=== PATIENT | male | born 1960 | race Caucasian/White ===

== ENCOUNTER 2016-12-07 05:13 | Observation (INO) | payer MEDICAID ==
[~2016-12-07] VITALS: Ht 172.7 cm; Wt 60.0 kg
[2016-12-07] VITALS (15 sets, daily range): BP systolic 140–211; BP diastolic 85–127; PULSE 75–110; RESP 16–20; TEMP 98.1–98.4; O2SAT 84–98
[~2016-12-07 05:13] MED LIST: PERC10TA27 PO; ZOFR4TAB3 SL
[2016-12-07] MEDS ORDERED: SODIUM CHLOR 0.9% 1000 ML INJ 1,000 ML IV SCH (05:24)
[2016-12-07] MEDS ORDERED: METH10TA PO (05:25)
[2016-12-07] MEDS ORDERED: ALBU.5I NEB (05:25)
[2016-12-07] MEDS ORDERED: DILA8TAB4 PO (05:25)
[2016-12-07] MEDS ORDERED: b/p med (05:25)
[2016-12-07] MEDS ORDERED: PROM25TA5 PO (05:25)
[2016-12-07] MEDS ORDERED: ONDANSETRON HCL 4 MG/2 ML VIAL IVP ONE (05:30)
[2016-12-07] MEDS ORDERED: MORPHINE SULFATE 4 MG/ML INJ IV PUSH ONE (05:30)
[2016-12-07] MEDS ORDERED: SODIUM CHLORIDE 0.9% FLUSH 5 ML FLUSH IVF PRN (05:30)
[2016-12-07 05:53] LABS: AUTOMATED NEUTROPHIL # 7.3 TH/MM3 (1.8-7.7); BASOPHIL % 0.2 % (0.0-2.0); EOSINOPHIL # 0.1 TH/MM3 (0-0.4); EOSINOPHIL % 0.8 % (0.0-4.0); HEMATOCRIT 51.4 % (39.0-51.0); HEMO FLAGS DIFF FINAL; LYMPH % 12.5 % (9.0-44.0); LYMPHOCYTE # 1.1 TH/MM3 (1.0-4.8); MEAN CORPUSCULAR HEMOGLOBIN 30.5 PG (27.0-34.0); MEAN CORPUSCULAR HGB CONC 34.3 % (32.0-36.0); MONO % 6.8 % (0.0-8.0); NEUT % 79.7 % (16.0-70.0); PLATELET COUNT 219 TH/MM3 (150-450); RED BLOOD COUNT 5.78 MIL/MM3 (4.50-5.90); RED CELL DISTRIBUTION WIDTH 13.8 % (11.6-17.2); WHITE BLOOD COUNT 9.2 TH/MM3 (4.0-11.0)
[2016-12-07] MEDS ORDERED: HYDROmorphone HCL PF 1 MG/ML VIAL IV PUSH ONE ×2 (06:00→09:00)
--- NOTE | 2016-12-07 06:07 | PD ---
HPI Chief Complaint: Abdominal Pain Time Seen by Provider: 05:22 Travel History International Travel<30 days: No Contact w/Intl Traveler<30days: No Traveled to known affect area: No History of Present Illness HPI The patient is a 55 year old male who presents to the [facility] emergency department with a history of abdominal pain that began on Monday evening. The patient reports that the pain began in the midepigastric area and now has generalized throughout the abdomen and up into his back. The patient reports that the pain is very similar to when he had flares of his acute pancreatitis. The patient reports that he is on hospice related to COPD, Crohn's disease and pancreatitis. He reports that he has not been able to keep down his methadone or dilaudid in spite of taking promethazine. He reports that he's had nausea and vomiting 4 times the last 24 hours. He reports that he has chronic diarrhea related to his Crohn's disease. He reports that on average he usually moves his bowels 15 times per day. He denies having any blood in his stool or black or tarry stools. He has not had any increase in his bowel movements with this abdominal pain. The patient reports that he did not call his hospice nurse to notify her about coming to the emergency department prior to arrival. The patient denies any recent fevers, worsening cough or congestion, neck pain, chest pain, shortness of breath,urinary symptoms, or neurologic symptoms. [facility] Past Medical History Narrative Medical The patient's past medical history is significant for chronic pancreatitis, history of pancreatic pseudocyst, history of esophageal varices, arthritis, history of myocardial infarction 2, history of COPD, Crohn's disease. Hx Anticoagulant Therapy: No Arthritis: Yes (RHEUMATOID AND OSTEO) Asthma: Yes Autoimmune Disease: No Anxiety: No Depression: No Heart Rhythm Problems: No Cancer: No Cardiac Catheterization: Yes Cardiovascular Problems: No High Cholesterol: No Chemotherapy: No Chest Pain: Yes Congestive Heart Failure: No COPD: Yes Cerebrovascular Accident: No Diabetes: No Diminished Hearing: No Diverticulitis: Yes (crohn's) Endocrine: No Gastrointestinal Disorders: Yes (CROHNS) GERD: Yes Genitourinary: No Headaches: No Hiatal Hernia: Yes Hypertension: Yes (WHEN IN PAIN) Immune Disorder: No Implanted Vascular Access Dvce: No Kidney Stones: No Musculoskeletal: Yes Neurologic: No Psychiatric: No Reproductive: No Respiratory: No Immunizations Current: Yes Migraines: No Myocardial Infarction: Yes (2009) Pancreatitis: Yes (chronic.) Radiation Therapy: No Renal Failure: No Seizures: No Sleep Apnea: No Thyroid Disease: No Ulcer: No Influenza Vaccination: Yes Past Surgical History Abdominal Surgery: No Body Medical Devices: BULLETS L KNEE, R SHOULDER, L ARM PIT, L THIGH Cardiac Surgery: Yes (ABLATION) Ear Surgery: No Endocrine Surgery: No Eye Surgery: No Genitourinary Surgery: No Gynecologic Surgery: No Hysterectomy: No Neurologic Surgery: No Oral Surgery: No Thoracic Surgery: No Other Surgery: Yes (ESOPHAGEAL VARICIES, BLOOD CLOT BETWEEN PANCREAS AND SPLEEN ) Social History Alcohol Use: No (QUIT 5 YEARS AGO) Tobacco Use: Yes (0.5 PPD) Substance Use: No Allergies-Medications (Allergen,Severity, Reaction): Coded Allergies: *MDRO Multi-Drug Resistant Organism (Verified Adverse Reaction, Unknown, ) MRSA 08/2013 Abscess - thigh. MRSA PCR Screen negative 04/29/15 and 07/20/15. Cleared per Infection Control. Reported Meds & Prescriptions Reported Meds & Active Scripts Active Reported [b/p med] Albuterol Neb (Albuterol Sulfate) 2.5 Mg/0.5 Ml Neb 2.5 Mg NEB Q6HR NEB Note: The Albuterol Sulfate Inhalation Solution is concentrated and must be diluted. Read complete instructions carefully before using. Phenergan (Promethazine HCl) 25 Mg Tab 25 Mg PO Q6H PRN Dilaudid (Hydromorphone HCl) 8 Mg Tab 8 Mg PO Q4HR PRN Methadone (Methadone HCl) 10 Mg Tab 10 Mg PO Q6HR Review of Systems Except as stated in HPI: all other systems reviewed are Neg General / Constitutional: No: Fever Eyes: No: Visual changes HENT: No: Headaches Cardiovascular: No: Chest Pain or Discomfort Respiratory: No: Shortness of Breath Gastrointestinal: Positive: Nausea, Vomiting, Diarrhea, Abdominal Pain, No: Hematemesis, Hematochezia, Constipation, Changes in Bowel Habits, Indigestion, Loss of Appetite Genitourinary: No: Dysuria Musculoskeletal: No: Pain Skin: No Rash Neurologic: No: Weakness Psychiatric: No: Depression Endocrine: No: Polydipsia Hematologic/Lymphatic: No: Easy Bruising Physical Exam Narrative General: The patient is a well-developed thin appearing male in no acute distress Head and Neck exam: Head is normocephalic atraumatic. Eyes: EOMI, pupils are equal round and reactive to light. Nose: Midline septum with pink mucous membranes Mouth: Dentition is in disrepair throughout his mouth with multiple broken teeth and dental decay throughout. Moist mucus membranes. Posterior oropharynx is not erythematous. No tonsillar hypertrophy. Uvula midline. Airway patent. Neck: No palpable lymphadenopathy. No nuchal rigidity. No thyromegaly. Cardiovascular: Regular rate and rhythm without murmurs, gallops, or rubs. Lungs: Clear to auscultation bilaterally. No wheezes, rhonchi, or rales. Abdomen: Soft, with midepigastric and bilateral upper quadrant tenderness on palpation, no tenderness on palpation of McBurney's point. No tenderness on palpation of bilateral lower quadrants of the abdomen. No guarding, rebound, or rigidity. Decreased bowel sounds are audible. Negative Ida sign. Extremities: No clubbing, cyanosis, or edema. 2+ pulses in all 4 extremities. No calf tenderness on palpation. Back: No spinous process tenderness to palpation. No costovertebral angle tenderness to palpation. Neurologic Exam: Grossly nonfocal. Skin Exam: No rash noted. Intact skin that is warm and dry. Data Data Last Documented VS Vital Signs Date Time Temp Pulse Resp B/P Pulse Ox O2 Delivery O2 Flow Rate FiO2 12/07/16 05:26 98 Room Air 12/07/16 05:25 98.1 102 16 172/116 Orders Complete Blood Count With Diff (12/07/16 05:24) Comprehensive Metabolic Panel (12/07/16 05:24) Lipase (12/07/16 05:24) Lactic Acid (12/07/16 05:24) Urinalysis - C+S If Indicated (12/07/16 05:24) Iv Access Insert/Monitor (12/07/16 05:24) Ecg Monitoring (12/07/16 05:24) Oximetry (12/07/16 05:24) Morphine Inj (Morphine Inj) (12/07/16 05:30) Ondansetron Inj (Zofran Inj) (12/07/16 05:30) Sodium Chlor 0.9% 1000 Ml Inj (Ns 1000 M (12/07/16 05:24) Sodium Chloride 0.9% Flush (Ns Flush) (12/07/16 05:30) Electrocardiogram (12/07/16 05:24) Creatine Kinase (Cpk) (12/07/16 05:24) Ckmb (Isoenzyme) Profile (12/07/16 05:24) Troponin I (12/07/16 05:24) Hydromorphone Pf Inj (Dilaudid Pf Inj) (12/07/16 06:00) Ct Abd/Pel W Iv Contrast(Rout) (12/07/16 06:07) Labs Laboratory Tests Test 12/07/16 12/07/16 05:30 06:25 White Blood Count 9.2 TH/MM3 Red Blood Count 5.78 MIL/MM3 Hemoglobin 17.6 GM/DL Hematocrit 51.4 % Mean Corpuscular Volume 89.0 FL Mean Corpuscular Hemoglobin 30.5 PG Mean Corpuscular Hemoglobin 34.3 % Concent Red Cell Distribution Width 13.8 % Platelet Count 219 TH/MM3 Mean Platelet Volume 8.4 FL Neutrophils (%) (Auto) 79.7 % Lymphocytes (%) (Auto) 12.5 % Monocytes (%) (Auto) 6.8 % Eosinophils (%) (Auto) 0.8 % Basophils (%) (Auto) 0.2 % Neutrophils # (Auto) 7.3 TH/MM3 Lymphocytes # (Auto) 1.1 TH/MM3 Monocytes # (Auto) 0.6 TH/MM3 Eosinophils # (Auto) 0.1 TH/MM3 Basophils # (Auto) 0.0 TH/MM3 CBC Comment DIFF FINAL Differential Comment Lactic Acid Level 0.8 mmol/L Sodium Level 139 MEQ/L Potassium Level 3.6 MEQ/L Chloride Level 103 MEQ/L Carbon Dioxide Level 27.4 MEQ/L Anion Gap 9 MEQ/L Blood Urea Nitrogen 9 MG/DL Creatinine 0.64 MG/DL Estimat Glomerular Filtration 130 ML/MIN Rate Random Glucose 109 MG/DL Calcium Level 8.2 MG/DL Total Bilirubin 0.6 MG/DL Aspartate Amino Transf 14 U/L (AST/SGOT) Alanine Aminotransferase 18 U/L (ALT/SGPT) Alkaline Phosphatase 64 U/L Total Creatine Kinase 62 U/L Troponin I 0.02 NG/ML Total Protein 7.1 GM/DL Albumin 3.6 GM/DL Lipase 1108 U/L MDM Medical Decision Making Medical Screen Exam Complete: Yes Emergency Medical Condition: Yes Medical Record Reviewed: Yes Interpretation(s) Laboratory Tests Test 12/07/16 12/07/16 05:30 06:25 Hemoglobin 17.6 GM/DL (13.0-17.0) Hematocrit 51.4 % (39.0-51.0) Neutrophils (%) (Auto) 79.7 % (16.0-70.0) Random Glucose 109 MG/DL (74-106) Calcium Level 8.2 MG/DL (8.5-10.1) Aspartate Amino Transf 14 U/L (15-37) (AST/SGOT) Lipase 1108 U/L (73-393) Differential Diagnosis Acute pancreatitis, versus peptic ulcer disease, versus Crohn's exacerbation, versus dehydration, versus acute coronary syndrome, versus electrolyte derangements Narrative Course During the course of the patients emergency department visit, the patients history, examination, and differential diagnosis were reviewed with the patient. The patient had IV access obtained and blood work sent for analysis. The patient was placed on a monitoring manager with oximetry and blood pressure monitoring. An EKG was done on arrival. The patient's EKG shows a sinus rhythm heart rate of 99, no acute ST segment elevation or depression is noted. T waves are inverted in V1 and aVL. The patient was provided normal saline IV fluids, morphine for pain, Zofran for nausea. The patient then told me that morphine does not think for him, and he continued to have pain, therefore he was given hydromorphone 1 mg IV. A call was placed out to the hospice nurse that normally cares for the patient to notify her of the patient's arrival in the emergency department for evaluation. The patients laboratory studies were reviewed and remarkable for a CBC that shows a white count of 9.2, hemoglobin 17.6, platelets 219 with 79.7 neutrophils , CMP is remarkable for a lactic acid 0.8, CMP is remarkable for a glucose of 109, calcium 8.2, AST 14, CPK 62, troponin I 0.02, lipase 1108. CT scan of the abdomen and pelvis is pending at the conclusion of my shift. The patient's case will be checked out to the oncoming emergency room physician to disposition based on the conclusion of his workup. Diagnosis Primary Impression: Acute on chronic pancreatitis Tegan Morales MD Dec 07, 2016 06:07
[2016-12-07 06:56] LABS: ALT (GPT) 18 U/L (12-78); ANION GAP 9 MEQ/L (5-15); AST (GOT) 14 U/L (15-37); BICARBONATE 27.4 MEQ/L (21.0-32.0); BLOOD UREA NITROGEN 9 MG/DL (7-18); CHLORIDE 103 MEQ/L (98-107); GLOMERULAR FILTRATION RATE 130 ML/MIN (>89); POTASSIUM 3.6 MEQ/L (3.5-5.1); SODIUM (NA) 139 MEQ/L (136-145)
[2016-12-07 07:00] LABS: ALKALINE PHOSPHATASE 64 U/L (45-117); TOTAL BILIRUBIN ADULT 0.6 MG/DL (0.2-1.0)
[2016-12-07 07:05] LABS: CREATINE KINASE 62 U/L (39-308)
--- NOTE | 2016-12-07 07:48 | RADRPT ---
EXAM DATE/TIME: 12/07/2016 07:11 [place] COMPARISON: CT ABDOMEN & PELVIS W/O CONTRAST, October 02, 2015, 23:41. CT ABDOMEN & PELVIS W CONTRAST, July 20, 2015, 11:36. INDICATIONS : Nausea and vomiting, epigastric pain. IV CONTRAST: 96 cc Omnipaque 350 (iohexol) IV ORAL CONTRAST: No oral contrast ingested. RADIATION DOSE: 8.44 CTDIvol (mGy) MEDICAL HISTORY : Pancreatitis. Chronic obstructive pulmonary disease. Cardiovascular diseaseHiatal hernia. Crohns. SURGICAL HISTORY : Esophageal surgery. ENCOUNTER: Initial ACUITY: 1 day PAIN SCALE: 10/10 LOCATION: epigastric TECHNIQUE: Volumetric scanning of the abdomen and pelvis was performed. Using automated exposure control and ad justment of the mA and/or kV according to patient size, radiation dose was kept as low as reasonably achievable to obtain optimal diagnostic quality images. FINDINGS: LOWER LUNGS: Minimal atelectasis is noted within the right posterior medial lung base. LIVER: Homogeneous density without lesion. There is no dilation of the biliary tree. No calcified gallston es. SPLEEN: Normal size without lesion. PANCREAS: Mild peripancreatic inflammatory changes are noted suggesting acute pancreatitis. Clinical correlatio n is recommended. Correlation with amylase and lipase levels is also suggested. There is a stable 2.3 cm cystic structure within the head/uncinate process of the pancreas. The main pancreatic duct is di ffusely dilated. KIDNEYS: Normal in size and shape. There is no mass or hydronephrosis. There is a tiny 3 mm faintly calcified lower pole right renal calculus. ADRENAL GLANDS: Within normal limits. VASCULAR: There is no aortic aneurysm. BOWEL/MESENTERY: The stomach, small bowel, and colon demonstrate no acute abnormality. There is no free intraperitone al air or fluid. ABDOMINAL WALL: Within normal limits. RETROPERITONEUM: There is no lymphadenopathy. BLADDER: No wall thickening or mass. REPRODUCTIVE: Within normal limits. INGUINAL: There is no lymphadenopathy or hernia. MUSCULOSKELETAL: Within normal limits for patient age. CONCLUSION: 1. Mild peripancreatic inflammatory changes are noted suggesting acute pancreatitis. Clinical correla tion is recommended. Correlation with amylase and lipase levels is also suggested. 2. Stable 2.3 cm cystic structure within the head/uncinate process of the pancreas. 3. Main pancreatic duct is diffusely dilated. 4. 3 mm calcified nonobstructing lower pole right renal calculus. Jim Flanagan MD on December 07, 2016 at 7:37 Board Certified Radiologist. This report was verified electronically.
--- NOTE | 2016-12-07 08:55 | PD ---
Physical Exam Date Seen by Provider: Dec 07, 2016 Data Data Last Documented VS Vital Signs Date Time Temp Pulse Resp B/P Pulse Ox O2 Delivery O2 Flow Rate FiO2 12/07/16 05:26 98 Room Air 12/07/16 05:25 98.1 102 16 172/116 Orders Complete Blood Count With Diff (12/07/16 05:24) Comprehensive Metabolic Panel (12/07/16 05:24) Lipase (12/07/16 05:24) Lactic Acid (12/07/16 05:24) Urinalysis - C+S If Indicated (12/07/16 05:24) Iv Access Insert/Monitor (12/07/16 05:24) Ecg Monitoring (12/07/16 05:24) Oximetry (12/07/16 05:24) Morphine Inj (Morphine Inj) (12/07/16 05:30) Ondansetron Inj (Zofran Inj) (12/07/16 05:30) Sodium Chlor 0.9% 1000 Ml Inj (Ns 1000 M (12/07/16 05:24) Sodium Chloride 0.9% Flush (Ns Flush) (12/07/16 05:30) Electrocardiogram (12/07/16 05:24) Creatine Kinase (Cpk) (12/07/16 05:24) Ckmb (Isoenzyme) Profile (12/07/16 05:24) Troponin I (12/07/16 05:24) Hydromorphone Pf Inj (Dilaudid Pf Inj) (12/07/16 06:00) Ct Abd/Pel W Iv Contrast(Rout) (12/07/16 06:07) Hydromorphone Pf Inj (Dilaudid Pf Inj) (12/07/16 09:00) Admit Order (Ed Use Only) (12/07/16 08:55) Labs Laboratory Tests Test 12/07/16 12/07/16 05:30 06:25 White Blood Count 9.2 TH/MM3 Red Blood Count 5.78 MIL/MM3 Hemoglobin 17.6 GM/DL Hematocrit 51.4 % Mean Corpuscular Volume 89.0 FL Mean Corpuscular Hemoglobin 30.5 PG Mean Corpuscular Hemoglobin 34.3 % Concent Red Cell Distribution Width 13.8 % Platelet Count 219 TH/MM3 Mean Platelet Volume 8.4 FL Neutrophils (%) (Auto) 79.7 % Lymphocytes (%) (Auto) 12.5 % Monocytes (%) (Auto) 6.8 % Eosinophils (%) (Auto) 0.8 % Basophils (%) (Auto) 0.2 % Neutrophils # (Auto) 7.3 TH/MM3 Lymphocytes # (Auto) 1.1 TH/MM3 Monocytes # (Auto) 0.6 TH/MM3 Eosinophils # (Auto) 0.1 TH/MM3 Basophils # (Auto) 0.0 TH/MM3 CBC Comment DIFF FINAL Differential Comment Lactic Acid Level 0.8 mmol/L Sodium Level 139 MEQ/L Potassium Level 3.6 MEQ/L Chloride Level 103 MEQ/L Carbon Dioxide Level 27.4 MEQ/L Anion Gap 9 MEQ/L Blood Urea Nitrogen 9 MG/DL Creatinine 0.64 MG/DL Estimat Glomerular Filtration 130 ML/MIN Rate Random Glucose 109 MG/DL Calcium Level 8.2 MG/DL Total Bilirubin 0.6 MG/DL Aspartate Amino Transf 14 U/L (AST/SGOT) Alanine Aminotransferase 18 U/L (ALT/SGPT) Alkaline Phosphatase 64 U/L Total Creatine Kinase 62 U/L Troponin I 0.02 NG/ML Total Protein 7.1 GM/DL Albumin 3.6 GM/DL Lipase 1108 U/L [facility] Medical Record Reviewed: Yes Supervised Visit with ALYSSA: No Narrative Course Patient signed out to me by Dr. Morales at change of shift. Pending CT study and disposition Patient with acute pancreatitis, reviewed all labs and all studies with the patient detailed. Patient reports that he cannot tolerate his by mouth medications at home, reports that he cannot tolerate fluids as well, patient will be admitted for acute pancreatitis. case reviewed with dr giles who accepts pt to service of Dr. Siegel Diagnosis Primary Impression: Acute on chronic pancreatitis Admitting Information Admitting Physician Requests: Admit Geraldine Henry DO Dec 07, 2016 08:55
--- NOTE | 2016-12-07 09:25 | HHI.HP ---
[facility] Service Family Medicine Primary Care Physician Casper Womack Admission Diagnosis acute pancreatitis Diagnoses: International Travel<30 Days: No Contact w/Intl Traveler<30days: No Known Affected Area: No History of Present Illness Patient is a 55-year-old male with past medical history of chronic pancreatitis , hypertension, A. fib status post ablation Crohn's disease, anxiety, and chronic back pain that presents to the [place] ED with a chief complaint of severe abdominal pain that began on Tuesday 12/05. Patient normally has abdominal pain from his chronic pancreatitis, which has been managed with oral pain medications by hospice for the past 1 year. However, the chronic pain became worse such that he couldn't keep medications down since Monday, they kept vomiting, abdominal pain became worse since Monday. Abdominal pain is straight across belt line and bilateral kidneys, and straight up and down his chest and straight up and down his spine. Vomited 10-15 times since Monday. Patient has chronic back pain, diarrhea from Crohn's disease. Also complains of an unintentional 8 pound loss over the past 2 weeks. Denies fever or chills. Has chronic shortness of breath from emphysema. Uses oxygen at hospice at home. Last hospitalized in December 2015 for exacerbation of chronic pancreatitis. Has been in home hospice for 1 year since then. Review of Systems Constitutional: COMPLAINS OF: Fatigue, DENIES: Fever, Chills, Night Sweats Eyes: DENIES: Blurred vision, Eye pain Ears, nose, mouth, throat: DENIES: Nasal discharge, Running Nose Respiratory: COMPLAINS OF: Cough, Sputum production, Shortness of breath ( chronic) Cardiovascular: COMPLAINS OF: Chest pain (associated with chronic pancreatitis) Gastrointestinal: COMPLAINS OF: Abdominal pain, Diarrhea (chronic ), Nausea Genitourinary: DENIES: Urinary frequency, Dysuria Musculoskeletal: COMPLAINS OF: Joint pain (hips), Muscle aches (back), Back pain (chronic) Integumentary: COMPLAINS OF: Pruritus (sometimes after takes meds for a couple minutes), DENIES: Rash Neurologic: COMPLAINS OF: Paresthesias (numbness in feet and fingers), DENIES : Headache Past Family Social History Past Medical History [place] x 2 AFIB s/p ablation 1 year ago Chronic pancreatitis Hypertension Anxiety Chronic back pain Past Surgical History A. fib Ablation Right shoulder and knee surgery Reported Medications Reported Meds & Active Scripts Active Reported [b/p med] Albuterol Neb (Albuterol Sulfate) 2.5 Mg/0.5 Ml Neb 2.5 Mg NEB Q6HR NEB Note: The Albuterol Sulfate Inhalation Solution is concentrated and must be diluted. Read complete instructions carefully before using. Phenergan (Promethazine HCl) 25 Mg Tab 25 Mg PO Q6H PRN Dilaudid (Hydromorphone HCl) 8 Mg Tab 8 Mg PO Q4HR PRN Methadone (Methadone HCl) 10 Mg Tab 10 Mg PO Q6HR Allergies: Coded Allergies: *MDRO Multi-Drug Resistant Organism (Verified Adverse Reaction, Unknown, ) MRSA 08/2013 Abscess - thigh. MRSA PCR Screen negative 04/29/15 and 07/20/15. Cleared per Infection Control. Family History No family history of diabetes or CAD Social History Smokes 1 cigarette in the morning and 1 cigarette at night Former alcoholic-drank 4 pints of vodka/day, quit 5 years ago Denies drug use Lives with and dog, no sick contacts Physical Exam Vital Signs Vital Signs Date Time Temp Pulse Resp B/P Pulse Ox O2 Delivery O2 Flow Rate FiO2 12/07/16 09:16 84 Nasal Cannula 2 12/07/16 09:11 90 20 171/107 97 12/07/16 05:26 98 Room Air 12/07/16 05:25 98.1 102 16 172/116 95 Physical Exam GENERAL: This is a well-nourished, well-developed patient, in no apparent distress. Appears slightly unkempt SKIN: No rashes, ecchymoses or lesions. Cool and dry. HEAD: Atraumatic. Normocephalic. No temporal or scalp tenderness. EYES: Pupils equal round and reactive. Extraocular motions intact. No scleral icterus. Erythematous sclera, no icterus ENT: Nose without bleeding, purulent drainage or septal hematoma. Throat without erythema, tonsillar hypertrophy or exudate. Uvula midline. Airway patent. Bad dentition, white patchy coating on tongue NECK: Trachea midline. No JVD or lymphadenopathy. Supple, nontender, no meningeal signs. CARDIOVASCULAR: Regular rate and rhythm without murmurs, gallops, or rubs. RESPIRATORY: Clear to auscultation. Breath sounds equal bilaterally. No wheezes , rales, or rhonchi. GASTROINTESTINAL: Abdomen soft, tender to light touch, nondistended. No hepato- splenomegaly, or palpable masses. No guarding. MUSCULOSKELETAL: Extremities without clubbing, cyanosis, or edema. No joint tenderness, effusion, or edema noted. No calf tenderness. NEUROLOGICAL: Awake and alert. Cranial nerves II through XII intact. Motor and sensory grossly within normal limits. Five out of 5 muscle strength in all muscle groups. Normal speech. Laboratory Laboratory Tests Test 12/07/16 12/07/16 05:30 06:25 White Blood Count 9.2 Red Blood Count 5.78 Hemoglobin 17.6 Hematocrit 51.4 Mean Corpuscular Volume 89.0 Mean Corpuscular Hemoglobin 30.5 Mean Corpuscular Hemoglobin 34.3 Concent Red Cell Distribution Width 13.8 Platelet Count 219 Mean Platelet Volume 8.4 Neutrophils (%) (Auto) 79.7 Lymphocytes (%) (Auto) 12.5 Monocytes (%) (Auto) 6.8 Eosinophils (%) (Auto) 0.8 Basophils (%) (Auto) 0.2 Neutrophils # (Auto) 7.3 Lymphocytes # (Auto) 1.1 Monocytes # (Auto) 0.6 Eosinophils # (Auto) 0.1 Basophils # (Auto) 0.0 CBC Comment DIFF FINAL Differential Comment Lactic Acid Level 0.8 Sodium Level 139 Potassium Level 3.6 Chloride Level 103 Carbon Dioxide Level 27.4 Anion Gap 9 Blood Urea Nitrogen 9 Creatinine 0.64 Estimat Glomerular Filtration 130 Rate Random Glucose 109 Calcium Level 8.2 Total Bilirubin 0.6 Aspartate Amino Transf 14 (AST/SGOT) Alanine Aminotransferase 18 (ALT/SGPT) Alkaline Phosphatase 64 Total Creatine Kinase 62 Troponin I 0.02 Total Protein 7.1 Albumin 3.6 Lipase 1108 Result Diagram: 12/07/16 0530 12/07/16 0625 Imaging Last Impressions Abdomen/Pelvis CT 12/07/16 0607 Signed Impressions: Service Date/Time: Wednesday, December 07, 2016 07:11 - CONCLUSION: 1. Mild peripancreatic inflammatory changes are noted suggesting acute pancreatitis. Clinical correlation is recommended. Correlation with amylase and lipase levels is also suggested. 2. Stable 2.3 cm cystic structure within the head/uncinate process of the pancreas. 3. Main pancreatic duct is diffusely dilated. 4. 3 mm calcified nonobstructing lower pole right renal calculus. Jim Flanagan MD Assessment and Plan Assessment and Plan 55 y/o M with a PMH of chronic pancreatitis presents with acute on chronic pancreatitis with nausea, vomiting, and exacerbated abdominal pain. Pt would be admitted on observation for rehydration and pain control. Code Status DNR Discussed Condition With Seen and examined with Dr. Isidro, PGY-2, Discussed with Dr. Siegel Problem List: (1) Acute on chronic pancreatitis Status: Acute Plan: -Worsened abdominal pain in the setting of chronic pancreatitis on hospice -Afebrile on admission -Lipase elevated at 1108 -Lactic acid WNL -UA negative -WBC WNL, does not meet there is criteria -CT scan in the ED shows mild peripancreatic inflammatory changes suggesting acute pancreatitis, stable 2.3 cm cystic structure within the head/uncinate process of the pancreas, main pancreatic duct is diffusely dilated -Received a NS bolus in the ED -NS at 150 mls/hr -Dilaudid 3mg IV Q4h -Dilaudid 2mg IV Q4h for breakthrough pain -We will resume patient's home methadone 20 mg by mouth every 8 hours as he tolerates -Vitals every 4 hours -Activity bed rest -Continuous hospital monitor with telemetry -I's and O qshift -Continuous pulse oximetry with supplemental oxygen as needed (2) Hypertension Status: Acute Plan: -Continue atenolol 25 mg by mouth daily -Vasotec PRN for SBP greater than 180, DBP greater than 110 (3) Emphysema of lung Status: Chronic Plan: -Albuterol 2.5 mg nebulizer -Continue prednisone 10 mg by mouth daily as patient tolerates (4) History of myocardial infarction Status: Acute Plan: -Troponin 1 0.02 -ECG 1 shows normal sinus rhythm, rate of 99 (5) Gastroesophageal reflux disease Status: Acute Plan: -Protonix 40 mg IV once daily (6) Depression Status: Acute Plan: -Continue sertraline 50 mg by mouth daily as patient tolerates (7) Anxiety Status: Acute Plan: -Ativan 1 mg IV every 6 hours PRN (8) FEN/DVT PPX/GI PPX Status: Acute Plan: Fluids:NS @ 150 mls/hr Electrolytes: Monitor and replace as needed Nutrition: Nothing by mouth DVT Prophylaxis: Lovenox 40 mg subcutaneous every 24 hours GI Prophylaxis: Protonix 40 mg IV daily Physician Certification 2 Midnight Certification Type: Admission for Inpatient Services Order for Inpatient Services The services are ordered in accordance with Medicare regulations or non- Medicare payer requirements, as applicable. In the case of services not specified as inpatient-only, they are appropriately provided as inpatient services in accordance with the 2-midnight benchmark. Estimated LOS (days): 12 days is the estimated time the patient will need to remain in the hospital, assuming treatment plan goals are met and no additional complications. Post-Hospital Plan: Hospice Problem Qualifiers (1) Hypertension: Qualified Code: I10 - Essential hypertension (2) Depression: Yeimy Saab MD R1 Dec 07, 2016 09:25
--- NOTE | 2016-12-07 09:43 | EKG ---
Date Performed: 12/07/2016 Time Performed: 05:22:39 PTAGE: 55 years EKG: Sinus rhythm NORMAL ECG PREVIOUS TRACING : 12/26/2015 05.24 DOCTOR: Rupesh Rodriguez Interpretating Date/Time 12/07/2016 09:41:26
[2016-12-07] MEDS ORDERED: HYDROmorphone HCL PF 2 MG/ML VIAL IV PUSH ONE (09:45)
[2016-12-07] MEDS ORDERED: RESP: ALBUTEROL CONC 2.5 MG/0.5 ML NEB NEB SCH (10:00)
[2016-12-07] MEDS ORDERED: RESP: ALBUTEROL 2.5 MG/3 ML NEB (SCH) INH ONE (10:30)
[2016-12-07] MEDS ORDERED: HYDROmorphone HCL PF 4 MG/ML VIAL IV PUSH PRN (10:45)
[2016-12-07] MEDS ORDERED: ACETAMINOPHEN 325 MG TAB PO PRN (11:00)
[2016-12-07] MEDS ORDERED: RESP: ALBUTEROL 2.5 MG/3 ML NEB (PRN) NEB (11:00)
[2016-12-07] MEDS ORDERED: ENALAPRILAT 1.25 MG/ML VIAL IV PUSH PRN (11:00)
[2016-12-07] MEDS ORDERED: LORazepam 2 MG/ML VIAL IV PUSH PRN ×2 (11:00→18:00)
[2016-12-07] MEDS ORDERED: predniSONE 10 MG TAB PO SCH (11:00)
[2016-12-07] MEDS ORDERED: ONDANSETRON HCL 4 MG/2 ML VIAL IV PRN (12:00)
[2016-12-07] MEDS ORDERED: ENOXAPARIN SODIUM 40 MG/0.4 ML SYRINGE SQ SCH (12:00)
[2016-12-07] MEDS ORDERED: METHADONE HCL 10 MG TAB PO SCH ×2 (12:00→14:00)
[2016-12-07] MEDS ORDERED: PANTOPRAZOLE SODIUM 40 MG VIAL IV PUSH SCH (12:00)
--- NOTE | 2016-12-07 12:05 | HHI.FPPN ---
Subjective Subjective Patient seen and examined. Case reviewed and discussed Please refer to resident H&P for further details regarding HPI, ROS, PMH, SurgHx , Fh and SOcHx In summary, patient has a history of recurrent pancreatitis, last hospitalization one year ago, but prior to that had many bouts of acute on chronic pancreatitis He is now currently on hospice for recurrent hospitalizations related to pancreatitis due to alcohol abuse. Hospice service is [facility] at home and he has been on this for one year. He will get small flares at home, which he can control with cessation of PO intake, but on Monday he had progressive pain. Yesterday the pain became worse and he started vomiting/dry heaving up to 6 times at home. He could not control the pain and was becoming dehydrated which prompted him to come in this am. [facility] Objective Objective Last Impressions Abdomen/Pelvis CT 12/07/16 0607 Signed Impressions: Service Date/Time: Monday, December 07, 2016 07:11 - CONCLUSION: 1. Mild peripancreatic inflammatory changes are noted suggesting acute pancreatitis. Clinical correlation is recommended. Correlation with amylase and lipase levels is also suggested. 2. Stable 2.3 cm cystic structure within the head/uncinate process of the pancreas. 3. Main pancreatic duct is diffusely dilated. 4. 3 mm calcified nonobstructing lower pole right renal calculus. Jim Flanagan MD Laboratory Tests - Abnormals Test 12/07/16 12/07/16 05:30 06:25 Hemoglobin 17.6 GM/DL Hematocrit 51.4 % Neutrophils (%) (Auto) 79.7 % Random Glucose 109 MG/DL Calcium Level 8.2 MG/DL Aspartate Amino Transf 14 U/L (AST/SGOT) Lipase 1108 U/L Vital Signs 12/07/16 12/07/16 12/07/16 12/07/16 05:25 05:26 09:11 09:16 Temp 98.1 Pulse 102 90 Resp 16 20 B/P 172/116 171/107 Pulse Ox 95 98 97 84 O2 Delivery Room Air Nasal Cannula O2 Flow Rate 2 12/07/16 12/07/16 12/07/16 09:52 10:29 10:35 Pulse 102 100 Resp 20 20 B/P 200/113 174/116 Pulse Ox 96 95 O2 Delivery Nasal Cannula Nasal Cannula Nasal Cannula O2 Flow Rate 2 2.00 2 Physical exam GENERAL: thin male, appears older than age. SKIN: Warm and dry. no rashes HEAD: Normocephalic. AT EYES: No scleral icterus. No injection or drainage. ENT: OP clear. MM slightly dry NECK: Supple, trachea midline. No JVD or lymphadenopathy. CARDIOVASCULAR: Regular rate and rhythm without murmurs, gallops, or rubs. RESPIRATORY: Breath sounds equal and clear bilaterally. No accessory muscle use. GASTROINTESTINAL: Abdomen soft, TTP diffusely, worse over epigastrium. nondistended. MUSCULOSKELETAL: No cyanosis, or edema. no calf tenderness BACK: Nontender without obvious deformity. No CVA tenderness. NEURO: Awake and alert. Normal speech. CN grossly intact. Assessment Assessment 55yoM admitted with: Acute on chronic pancreatitis Uncontrolled HTN Intractable pain Dehydration Inability to tolerate PO N/V PLAN PLAN IVF resuscitation Pain control Anti-emetics NPO Resume home meds as appropriate Convert PO meds to IV BP control Patient seen and examined. Case reviewed and discussed Agree with plan of care as discussed with me and documented in the resident note. Yanet Siegel MD Dec 07, 2016 12:05
[2016-12-07] MEDS: SODIUM CHLOR 0.9% 1000 ML INJ 1,000 ML IV SCH ×2 (12:12→18:03)
[2016-12-07] MEDS: HYDROmorphone HCL PF 2 MG/ML VIAL IV PUSH PRN ×2 (12:26→21:03)
[2016-12-07 13:01] LABS: BLOOD, URINE NEG (NEG); COMMENT (UR) CULT NOT INDICATED; CULTURE IF INDICATED CULT NOT INDICATED; GLUCOSE,URINE NEG (NEG); KETONE, URINE 10 mg/dL (NEG); MUCUS URINE FEW /lpf (OCC); NITRITE,URINE NEG (NEG); PH, URINE 7.5 (5.0-8.5); URINE COLOR YELLOW (YELLW/STRAW)
[2016-12-07] MEDS ORDERED: IOHEXOL 350 MG/ML 10 ML VIAL (for RAD DIAG) IV ONE (22:29)
[2016-12-08] MEDS ORDERED: SERTRALINE HCL 50 MG TAB PO SCH (09:00)
[2016-12-08] MEDS ORDERED: ATENOLOL 25 MG TAB PO SCH (09:00)
--- NOTE | 2016-12-08 10:20 | PD.AMA ---
Against Medical Advice Note Diagnosis: (1) Acute on chronic pancreatitis Discharge Disposition: Against Medical Advice Pt Condition on Discharge: Stable AMA Statement Patient Dwaine Al Jr Hayden has decided to leave the hospital against medical advice. Pt was admitted for pain control for acute on chronic pancreatitis and left when informed he was NPO and unable to eat dinner. This patient has the capacity to refuse care and understands the risks of leaving, including permanent disability and/or , and has had an opportunity to ask questions about his condition. The patient has been informed that he may return for care at any time. Family practice team will accept the patient on their service should he return to care at [facility]. Follow-up was advised, but not arranged, as patient left AMA Michelle Velazquez MD R1 Dec 08, 2016 10:19
--- NOTE | 2016-12-08 15:13 | PD.AMA ---
Against Medical Advice Note Diagnosis: (1) Chronic pancreatitis (2) Pancreatic pseudocyst (3) Acute pancreatitis (4) Emphysema of lung (5) Anxiety (6) Depression (7) Gastroesophageal reflux disease (8) Hypertension (9) Abdominal pain (10) Hx of Crohn's disease Discharge Disposition: Against Medical Advice Pt Condition on Discharge: Stable AMA Statement Patient Dwaine BlakeJr has decided to leave the hospital against medical advice. This patient has the capacity to refuse care and understands the risks of leaving, including permanent disability and/or , and has had an opportunity to ask questions about his condition. The patient has been informed that he may return for care at any time, and follow up has been arranged/advised. Yeimy Saab MD R1 Dec 08, 2016 15:13
== END 2016-12-07 22:30 | disposition left against medical advice (07) ==
LOC: NEPE 05:13 → INTOOBSV 08:57 → NEDA 08:57 → NEDH 13:18 → N04B 21:19
PROVIDERS: ADMIT Family Medicine; ATTEND Family Medicine
DX: K85.90 Acute pancreatitis without necrosis or infection, unspecified (principal); K50.90 Crohn's disease, unspecified, without complications; J44.9 Chronic obstructive pulmonary disease, unspecified; I25.2 Old myocardial infarction; I85.00 Esophageal varices without bleeding; M06.9 Rheumatoid arthritis, unspecified; R07.9 Chest pain, unspecified; K57.92 Diverticulitis of intestine, part unspecified, without perforation or abscess without bleeding; K44.9 Diaphragmatic hernia without obstruction or gangrene; I10 Essential (primary) hypertension; K21.9 Gastro-esophageal reflux disease without esophagitis; F17.210 Nicotine dependence, cigarettes, uncomplicated; K86.1 Other chronic pancreatitis; N20.0 Calculus of kidney; F32.9 Major depressive disorder, single episode, unspecified; F41.9 Anxiety disorder, unspecified; F10.21 Alcohol dependence, in remission
CPT/HCPCS: 74177; 80053; 81001; 82550; 83605; 83690; 84484; 85025; 93005; 94664; 96361; 96374; 96375; 99285; C9113; G0378; J1170; J1650; J2060; J2270; J2405; J7030; J7512; J7613; Q9967

== ENCOUNTER 2017-08-03 00:37 | Emergency (ER) | payer MEDICAID ==
[~2017-08-03] VITALS: Ht 172.7 cm; Wt 60.0 kg
[~2017-08-03 00:37] MED LIST changes: +ALBU.5I NEB; +DILA8TAB4 PO; +METH10TA PO; -PERC10TA27 PO; +PROM25TA5 PO; -ZOFR4TAB3 SL; +b/p med
[2017-08-03 00:45] VITALS: BP 118/74; PULSE 90; RESP 20; TEMP 98.8; O2SAT 98
[2017-08-03 00:52] VITALS: RESP 20; O2SAT 98
--- NOTE | 2017-08-03 00:52 | PD ---
HPI Chief Complaint: General Weakness Time Seen by Provider: 00:45 Travel History International Travel<30 days: No Contact w/Intl Traveler<30days: No Traveled to known affect area: No History of Present Illness HPI 56-year-old male with history of chronic pancreatitis, COPD, supposedly on home hospice, however he states for the last 2 days the home nurse has not come to his home and he is not sure why. He has been out of his usual medications such as methadone and Dilaudid for the last 2 days, and states that the last 2 days he has been having general weakness and shortness of breath. Shortest breath is at rest, worse with exertion, associated with some chest tightness. He is also having some epigastric abdominal pain, nausea, vomiting, and diarrhea. Pain is moderate to severe, constant, worse with movement and palpation. PFSH Past Medical History Hx Anticoagulant Therapy: No Arthritis: Yes (RHEUMATOID AND OSTEO) Asthma: Yes Autoimmune Disease: No Anxiety: No Depression: No Heart Rhythm Problems: No Cancer: No Cardiac Catheterization: Yes Cardiovascular Problems: No High Cholesterol: No Chemotherapy: No Chest Pain: Yes Congestive Heart Failure: No COPD: Yes Cerebrovascular Accident: No Diabetes: No Diminished Hearing: No Diverticulitis: Yes (crohn's) Endocrine: No Gastrointestinal Disorders: Yes (CROHNS) GERD: Yes Genitourinary: No Headaches: No Hiatal Hernia: Yes Hypertension: Yes (WHEN IN PAIN) Immune Disorder: No Implanted Vascular Access Dvce: No Kidney Stones: No Musculoskeletal: Yes Neurologic: No Psychiatric: No Reproductive: No Respiratory: No Immunizations Current: Yes Migraines: No Myocardial Infarction: Yes (2009) Pancreatitis: Yes (chronic.) Radiation Therapy: No Renal Failure: No Seizures: No Sleep Apnea: No Thyroid Disease: No Ulcer: No Past Surgical History Abdominal Surgery: No Body Medical Devices: BULLETS L KNEE, R SHOULDER, L ARM PIT, L THIGH Cardiac Surgery: Yes (ABLATION) Ear Surgery: No Endocrine Surgery: No Eye Surgery: No Genitourinary Surgery: No Gynecologic Surgery: No Hysterectomy: No Neurologic Surgery: No Oral Surgery: No Thoracic Surgery: No Other Surgery: Yes (ESOPHAGEAL VARICIES, BLOOD CLOT BETWEEN PANCREAS AND SPLEEN ) Social History Alcohol Use: No (QUIT 5 YEARS AGO) Tobacco Use: Yes (0.5 PPD) Substance Use: No Allergies-Medications (Allergen,Severity, Reaction): Coded Allergies: *MDRO Multi-Drug Resistant Organism (Verified Adverse Reaction, Unknown, ) MRSA 08/2013 Abscess - thigh. MRSA PCR Screen negative 04/29/15 and 07/20/15. Cleared per Infection Control. Reported Meds & Prescriptions Reported Meds & Active Scripts Active Reported [b/p med] Albuterol Neb (Albuterol Sulfate) 2.5 Mg/0.5 Ml Neb 2.5 Mg NEB Q6HR NEB Note: The Albuterol Sulfate Inhalation Solution is concentrated and must be diluted. Read complete instructions carefully before using. Phenergan (Promethazine HCl) 25 Mg Tab 25 Mg PO Q6H PRN Dilaudid (Hydromorphone HCl) 8 Mg Tab 8 Mg PO Q4HR PRN Methadone (Methadone HCl) 10 Mg Tab 10 Mg PO Q6HR Review of Systems Except as stated in HPI: all other systems reviewed are Neg Physical Exam Narrative GENERAL: Well-developed, well-nourished, awake, alert, no apparent distress. SKIN: Focused skin assessment warm/dry. HEAD: Atraumatic. Normocephalic. EYES: Pupils equal and round. No scleral icterus. No injection or drainage. ENT: Mucous membranes pink and moist. NECK: Trachea midline. No JVD. CARDIOVASCULAR: Regular rate and rhythm. No murmur appreciated. RESPIRATORY: No accessory muscle use. Poor air movement bilaterally. Mild end expiratory wheezes bilaterally. No rales or rhonchi. Breath sounds equal bilaterally. GASTROINTESTINAL: Abdomen soft, nondistended. Mild epigastric tenderness without peritoneal signs. Rest of abdomen is soft and nontender. Normal bowel sounds. MUSCULOSKELETAL: No obvious deformities. No clubbing. No cyanosis. No edema. NEUROLOGICAL: Awake and alert. No obvious cranial nerve deficits. Motor grossly within normal limits. Normal speech. PSYCHIATRIC: Appropriate mood and affect; insight and judgment normal. Data Data Last Documented VS Vital Signs Date Time Temp Pulse Resp B/P (MAP) Pulse Ox O2 Delivery O2 Flow Rate FiO2 08/03/17 00:52 20 98 Nasal Cannula 2.00 08/03/17 00:45 98.8 90 118/74 (89) Orders Orders Complete Blood Count With Diff (08/03/17 00:48) Comprehensive Metabolic Panel (08/03/17 00:48) B-Type Natriuretic Peptide (08/03/17 00:48) Act Partial Throm Time (Ptt) (08/03/17 00:48) Prothrombin Time / Inr (Pt) (08/03/17 00:48) Ckmb (Isoenzyme) Profile (08/03/17 00:48) Troponin I (08/03/17 00:48) Iv Access Insert/Monitor (08/03/17 00:48) Electrocardiogram (08/03/17 00:48) Ecg Monitoring (08/03/17 00:48) Oximetry (08/03/17 00:48) Oxygen Administration (08/03/17 00:48) Chest, Single Ap (08/03/17 00:48) Sodium Chloride 0.9% Flush (Ns Flush) (08/03/17 01:00) Methylprednisolone So Succ Inj (Solumedr (08/03/17 01:00) Albuterol-Ipratropium Neb (Duoneb Neb) (08/03/17 01:00) Lipase (08/03/17 00:48) Hydromorphone Pf Inj (Dilaudid Pf Inj) (08/03/17 01:00) Hydromorphone Pf Inj (Dilaudid Pf Inj) (08/03/17 01:15) CKMB (08/03/17 01:19) CKMB% (08/03/17 01:19) Potassium Chloride (Kcl) (08/03/17 02:30) Labs Laboratory Tests Test 08/03/17 01:19 White Blood Count 13.1 TH/MM3 Red Blood Count 5.97 MIL/MM3 Hemoglobin 17.6 GM/DL Hematocrit 52.6 % Mean Corpuscular Volume 88.1 FL Mean Corpuscular Hemoglobin 29.4 PG Mean Corpuscular Hemoglobin Concent 33.4 % Red Cell Distribution Width 13.8 % Platelet Count 316 TH/MM3 Mean Platelet Volume 7.7 FL Neutrophils (%) (Auto) 76.8 % Lymphocytes (%) (Auto) 16.5 % Monocytes (%) (Auto) 5.4 % Eosinophils (%) (Auto) 1.0 % Basophils (%) (Auto) 0.3 % Neutrophils # (Auto) 10.1 TH/MM3 Lymphocytes # (Auto) 2.2 TH/MM3 Monocytes # (Auto) 0.7 TH/MM3 Eosinophils # (Auto) 0.1 TH/MM3 Basophils # (Auto) 0.0 TH/MM3 CBC Comment DIFF FINAL Differential Comment Prothrombin Time 12.0 SEC Prothromb Time International Ratio 1.1 RATIO Activated Partial Thromboplast Time 27.9 SEC Blood Urea Nitrogen 7 MG/DL Creatinine 0.70 MG/DL Random Glucose 104 MG/DL Total Protein 7.9 GM/DL Albumin 3.6 GM/DL Calcium Level 8.1 MG/DL Alkaline Phosphatase 86 U/L Aspartate Amino Transf (AST/SGOT) 47 U/L Alanine Aminotransferase (ALT/SGPT) 36 U/L Total Bilirubin 0.4 MG/DL Sodium Level 136 MEQ/L Potassium Level 3.3 MEQ/L Chloride Level 100 MEQ/L Carbon Dioxide Level 24.6 MEQ/L Anion Gap 11 MEQ/L Estimat Glomerular Filtration Rate 117 ML/MIN Total Creatine Kinase 138 U/L Creatine Kinase MB 3.3 NG/ML Troponin I LESS THAN 0.02 NG/ML B-Type Natriuretic Peptide 111 PG/ML Lipase 127 U/L [facility] Medical Decision Making Medical Screen Exam Complete: Yes Emergency Medical Condition: Yes Differential Diagnosis Generalized weakness, metabolic abnormality, COPD exacerbation, pancreatitis Narrative Course Vital signs show heart rate 90, blood pressure 118/74, pulse ox 98% on room air , oral temp of 98.8F. CBC: WBC 13.1, hemoglobin 17.6, hematocrit 52.6, platelets 316. CMP is remarkable for potassium 3.3 which was replaced orally, otherwise unremarkable. Lipase is 127. BNP is 111. Cardiac enzymes are negative. Chest x-ray shows no acute disease. The patient was given pain medicine, IV Solu-Medrol, and DuoNeb 3. On reassessment he is resting comfortably. He believes a lot of his symptoms were from stopping opiates 2 days ago because he ran out of his prescription. Patient has chronic pain and is supposed to be on hospice. At this point he does not meet criteria for admission. He was made aware of all findings and will be discharged home. I will give him a short course of Percocet to help him with his chronic pain. He states he is supposed to meet with a new hospice service in the next couple of days. He was informed on when to return to the emergency department. He verbalizes understanding and agreement with plan. Diagnosis Primary Impression: COPD exacerbation Additional Impression: Chronic pain Qualified Codes: G89.29 - Other chronic pain Referrals: Primary Care Physician 3 days Additional Instructions: Follow-up with a primary care physician or your hospice services this week. Return to the emergency department for worsening symptoms or any other concerns. Scripts Oxycodone-Acetaminophen (Percocet) 10-325 mg Tab 1 TAB PO Q6H Y for PAIN, #10 TAB 0 Refills Prov: Melvin Ashley MD 08/03/17 Prednisone (Prednisone) 50 Mg Tab 50 MG PO DAILY for 5 Days, #5 TAB 0 Refills Prov: Melvin Ashley MD 08/03/17 Disposition: 01 DISCHARGE HOME Condition: Stable Melvin Ashley MD Aug 03, 2017 00:52
[2017-08-03] MEDS ORDERED: SODIUM CHLORIDE 0.9% FLUSH 10 ML FLUSH IVF PRN ×2 (01:00)
[2017-08-03] MEDS ORDERED: methylPREDNISolone SOD SUCC 125 MG/2 ML VIAL IV PUSH ONE ×2 (01:00)
[2017-08-03] MEDS ORDERED: HYDROmorphone HCL PF 1 MG/ML VIAL IV PUSH ONE ×2 (01:00)
[2017-08-03] MEDS ORDERED: HYDROmorphone HCL PF 0.5 MG/0.5 ML SYRINGE IV PUSH ONE ×2 (01:15)
--- NOTE | 2017-08-03 01:20 | RADRPT ---
EXAM DATE/TIME: 08/03/2017 01:05 [facility] COMPARISON: No previous studies available for comparison. INDICATIONS : Shortness of breath MEDICAL HISTORY : None. SURGICAL HISTORY : None. ENCOUNTER: Initial ACUITY: 1 day PAIN SCORE: 7/10 LOCATION: Bilateral chest FINDINGS: A single view of the chest demonstrates the lungs to be symmetrically aerated without evidence of mas s, infiltrate or effusion. The cardiomediastinal contours are unremarkable. Osseous structures are intact. CONCLUSION: No acute disease. Satish Guerrero MD on August 03, 2017 at 1:18 Board Certified Radiologist. This report was verified electronically.
[2017-08-03 01:43] LABS: AUTOMATED NEUTROPHIL # 10.1 TH/MM3 (1.8-7.7); BASOPHIL % 0.3 % (0.0-2.0); EOSINOPHIL # 0.1 TH/MM3 (0-0.4); HEMATOCRIT 52.6 % (39.0-51.0); HEMOGLOBIN 17.6 GM/DL (13.0-17.0); LYMPH % 16.5 % (9.0-44.0); LYMPHOCYTE # 2.2 TH/MM3 (1.0-4.8); MEAN CELL VOLUME 88.1 FL (80.0-100.0); MEAN CORPUSCULAR HEMOGLOBIN 29.4 PG (27.0-34.0); MEAN CORPUSCULAR HGB CONC 33.4 % (32.0-36.0); MEAN PLATELET VOLUME 7.7 FL (7.0-11.0); MONO % 5.4 % (0.0-8.0); MONOCYTE # 0.7 TH/MM3 (0-0.9); NEUT % 76.8 % (16.0-70.0); PLATELET COUNT 316 TH/MM3 (150-450); RED BLOOD COUNT 5.97 MIL/MM3 (4.50-5.90); RED CELL DISTRIBUTION WIDTH 13.8 % (11.6-17.2); WHITE BLOOD COUNT 13.1 TH/MM3 (4.0-11.0)
[2017-08-03] MEDS: RESP: ALBUTEROL 2.5 MG/IPRATROPIUM 0.5 MG NEB (SCH) INH ×4 (01:44→01:45)
[2017-08-03 02:03] LABS: ALBUMIN 3.6 GM/DL (3.4-5.0); ALKALINE PHOSPHATASE 86 U/L (45-117); ALT (GPT) 36 U/L (12-78); AST (GOT) 47 U/L (15-37); BICARBONATE 24.6 MEQ/L (21.0-32.0); BLOOD UREA NITROGEN 7 MG/DL (7-18); CALCIUM 8.1 MG/DL (8.5-10.1); CHLORIDE 100 MEQ/L (98-107); GLOMERULAR FILTRATION RATE 117 ML/MIN (>89); GLUCOSE,RANDOM 104 MG/DL (74-106); LIPASE 127 U/L (73-393); SODIUM (NA) 136 MEQ/L (136-145); TOTAL BILIRUBIN ADULT 0.4 MG/DL (0.2-1.0); TOTAL PROTEIN 7.9 GM/DL (6.4-8.2); TROPONIN I LESS THAN 0.02 NG/ML (0.02-0.05)
[2017-08-03 02:16] LABS: INTERNATIONAL NORMALIZED RATIO 1.1 RATIO
[2017-08-03] MEDS ORDERED: PRED50 PO ×2 (02:26)
[2017-08-03] MEDS ORDERED: PERC10TA27 PO ×2 (02:26)
[2017-08-03] MEDS ORDERED: POTASSIUM CHLORIDE 20 MEQ CONTROLLED RELEASE TAB PO ONE ×2 (02:30)
--- NOTE | 2017-08-03 15:01 | EKG ---
Date Performed: 08/03/2017 Time Performed: 01:16:48 PTAGE: 56 years EKG: Sinus rhythm NORMAL ECG PREVIOUS TRACING : 12/07/2016 05.22 Compared to prior tracing no significant change DOCTOR: Laine Ledesma Interpretating Date/Time 08/03/2017 14:54:35
[2017-08-04] MEDS ORDERED: LORA2TAB7 PO ×2 (22:29)
[2017-08-05] MEDS ORDERED: DICY10 PO ×2 (00:53)
[2017-08-05] MEDS ORDERED: ZOFR4TAB3 SL ×2 (00:53)
== END 2017-08-03 03:07 | disposition home or self-care (01) ==
LOC: NEPC 00:37
DX: J44.1 Chronic obstructive pulmonary disease with (acute) exacerbation (principal); G89.29 Other chronic pain; F17.200 Nicotine dependence, unspecified, uncomplicated
CPT/HCPCS: 71010; 80053; 82550; 82552; 83690; 83880; 84484; 85025; 85610; 85730; 93005; 94640; 94664; 96374; 96375; 99285; J1170; J2930

== ENCOUNTER 2017-08-04 22:05 | Emergency (ER) | payer MEDICAID ==
[~2017-08-04] VITALS: Ht 172.7 cm; Wt 63.6 kg
[~2017-08-04 22:05] MED LIST changes: +PERC10TA27 PO; +PRED50 PO
[2017-08-04] MEDS ORDERED: LORA2TAB7 PO (22:29)
[2017-08-04 22:30] VITALS: BP 190/105; PULSE 70; RESP 20; TEMP 99; O2SAT 99
[2017-08-04] MEDS ORDERED: SODIUM CHLOR 0.9% 1000 ML INJ 1,000 ML IV ONE (22:30)
[2017-08-04] MEDS ORDERED: ONDANSETRON HCL 4 MG/2 ML VIAL IVP ONE (22:30)
[2017-08-04] MEDS ORDERED: SODIUM CHLORIDE 0.9% FLUSH 10 ML FLUSH IV FLUSH PRN (22:30)
--- NOTE | 2017-08-04 22:36 | PD ---
HPI Chief Complaint: abdominal pain Time Seen by Provider: 22:19 Travel History International Travel<30 days: No Contact w/Intl Traveler<30days: No History of Present Illness HPI Patient comes to emergency Department complaining of epigastric abdominal pain. Patient states pain feels similar to previous pancreatic flare. Patient reports he has a history of chronic pancreatitis and was in hospice for this. Patient reports when he was hospice he was on high-dose pain medication of Dilaudid and methadone but was kicked out a hospice and is no longer on pain medication. Patient states pain began this morning in his epigastric region and radiates throughout his abdomen. Patient reports bilious vomiting without blood and nonbloody diarrhea. PFSH Past Medical History Hx Anticoagulant Therapy: No Arthritis: Yes (RHEUMATOID AND OSTEO) Asthma: Yes Autoimmune Disease: No Anxiety: No Depression: No Heart Rhythm Problems: No Cancer: No Cardiac Catheterization: Yes Cardiovascular Problems: No High Cholesterol: No Chemotherapy: No Chest Pain: Yes Congestive Heart Failure: No COPD: Yes (END STAGE) Cerebrovascular Accident: No Diabetes: No Diminished Hearing: No Diverticulitis: Yes (crohn's) Endocrine: No Gastrointestinal Disorders: Yes (CROHNS) GERD: Yes Genitourinary: No Headaches: No Hiatal Hernia: Yes Hypertension: Yes Immune Disorder: No Implanted Vascular Access Dvce: No Kidney Stones: No Musculoskeletal: Yes Neurologic: No Psychiatric: No Reproductive: No Respiratory: No Immunizations Current: Yes Migraines: No Myocardial Infarction: Yes (2009) Pancreatitis: Yes (chronic.) Radiation Therapy: No Renal Failure: No Seizures: No Sleep Apnea: No Thyroid Disease: No Ulcer: No Past Surgical History Abdominal Surgery: No Body Medical Devices: BULLETS L KNEE, R SHOULDER, L ARM PIT, L THIGH Cardiac Surgery: Yes (ABLATION) Ear Surgery: No Endocrine Surgery: No Eye Surgery: No Genitourinary Surgery: No Gynecologic Surgery: No Hysterectomy: No Neurologic Surgery: No Oral Surgery: No Thoracic Surgery: No Other Surgery: Yes (ESOPHAGEAL VARICIES, BLOOD CLOT BETWEEN PANCREAS AND SPLEEN ) Social History Alcohol Use: Yes (OCCASSIONALLY) Tobacco Use: No Substance Use: No Allergies-Medications (Allergen,Severity, Reaction): Coded Allergies: *MDRO Multi-Drug Resistant Organism (Verified Adverse Reaction, Unknown, 08/04/17) MRSA 08/2013 Abscess - thigh. MRSA PCR Screen negative 04/29/15 and 07/20/15. Cleared per Infection Control. Reported Meds & Prescriptions Reported Meds & Active Scripts Active Zofran Odt (Ondansetron Odt) 4 Mg Tab 4 Mg SL Q6HR PRN Bentyl (Dicyclomine HCl) 10 Mg Cap 10 Mg PO TID PRN Percocet (Oxycodone-Acetaminophen) 10-325 mg Tab 1 Tab PO Q6H PRN Prednisone 50 Mg Tab 50 Mg PO DAILY 5 Days Reported Lorazepam 2 Mg Tab 2 Mg PO Q4HR PRN [b/p med] Albuterol Neb (Albuterol Sulfate) 2.5 Mg/0.5 Ml Neb 2.5 Mg NEB Q6HR NEB Note: The Albuterol Sulfate Inhalation Solution is concentrated and must be diluted. Read complete instructions carefully before using. Dilaudid (Hydromorphone HCl) 8 Mg Tab 8 Mg PO Q4HR PRN Methadone (Methadone HCl) 10 Mg Tab 10 Mg PO Q6HR Review of Systems Except as stated in HPI: all other systems reviewed are Neg Physical Exam Narrative GENERAL: Well-developed, well nourished, in no acute distress, and non-ill appearing. SKIN: Focused skin assessment warm and dry. HEAD: Atraumatic. Normocephalic. EYES: Pupils equal and round. EOMI. No scleral icterus. No injection or drainage. ENT: No nasal bleeding or discharge. Mucous membranes pink and moist. NECK: Trachea midline. Supple. No nuclear rigidity. CARDIOVASCULAR: Regular rate and rhythm. No murmur appreciated. RESPIRATORY: No accessory muscle use. No respiratory distress. Scant wheezing throughout. Breath sounds equal bilaterally. GASTROINTESTINAL: Abdomen soft, nondistended, and no guarding. Hepatic and splenic margins not palpable. Normal bowel sounds 4. No pulsatile mass. Patient reports tenderness to palpation in epigastric area however when distracted shows no signs of pain over epigastric area. MUSCULOSKELETAL: No obvious deformities. No clubbing. No cyanosis. No edema. Full range of motion. NEUROLOGICAL: Awake and alert. No obvious cranial nerve deficits. Motor grossly within normal limits. Normal speech. PSYCHIATRIC: Appropriate mood and affect; insight and judgment normal. Data Data Last Documented VS Vital Signs Date Time Temp Pulse Resp B/P (MAP) Pulse Ox O2 Delivery O2 Flow Rate FiO2 08/04/17 22:47 98 Nasal Cannula 2.00 08/04/17 22:30 99.0 70 20 190/105 (133) Orders Orders Complete Blood Count With Diff (08/04/17 22:19) Comprehensive Metabolic Panel (08/04/17 22:) Lipase (08/04/17 22:19) Prothrombin Time / Inr (Pt) (08/04/17 22:) Act Partial Throm Time (Ptt) (08/04/17 22:) Iv Access Insert/Monitor (08/04/17 22:) Ecg Monitoring (08/04/17 22:) Oximetry (08/04/17 22:19) Ondansetron Inj (Zofran Inj) (08/04/17 22:30) Sodium Chloride 0.9% Flush (Ns Flush) (08/04/17 22:30) Electrocardiogram (08/04/17 22:) Sodium Chlor 0.9% 1000 Ml Inj (Ns 1000 M (08/04/17 22:30) Alcohol (Ethanol) (08/04/17 22:30) Clonidine 0.1 Mg Patch.7d (Catapres-Tts (08/05/17 01:00) Ed Discharge Order (08/05/17 00:54) Labs Laboratory Tests Test 08/04/17 22:30 08/05/17 00:10 White Blood Count 9.3 TH/MM3 Red Blood Count 6.20 MIL/MM3 Hemoglobin 18.3 GM/DL Hematocrit 54.3 % Mean Corpuscular Volume 87.6 FL Mean Corpuscular Hemoglobin 29.5 PG Mean Corpuscular Hemoglobin Concent 33.6 % Red Cell Distribution Width 14.0 % Platelet Count 280 TH/MM3 Mean Platelet Volume 8.1 FL Neutrophils (%) (Auto) 79.0 % Lymphocytes (%) (Auto) 14.0 % Monocytes (%) (Auto) 6.1 % Eosinophils (%) (Auto) 0.4 % Basophils (%) (Auto) 0.5 % Neutrophils # (Auto) 7.3 TH/MM3 Lymphocytes # (Auto) 1.3 TH/MM3 Monocytes # (Auto) 0.6 TH/MM3 Eosinophils # (Auto) 0.0 TH/MM3 Basophils # (Auto) 0.1 TH/MM3 CBC Comment DIFF FINAL Differential Comment Prothrombin Time 11.4 SEC Prothromb Time International Ratio 1.0 RATIO Activated Partial Thromboplast Time 28.3 SEC Blood Urea Nitrogen 9 MG/DL Creatinine 0.75 MG/DL Random Glucose 109 MG/DL Total Protein 7.5 GM/DL Albumin 3.7 GM/DL Calcium Level 7.9 MG/DL Alkaline Phosphatase 73 U/L Aspartate Amino Transf (AST/SGOT) 30 U/L Alanine Aminotransferase (ALT/SGPT) 31 U/L Total Bilirubin 0.7 MG/DL Sodium Level 139 MEQ/L Potassium Level 3.6 MEQ/L Chloride Level 105 MEQ/L Carbon Dioxide Level 28.4 MEQ/L Anion Gap 6 MEQ/L Estimat Glomerular Filtration Rate 108 ML/MIN Lipase 157 U/L Ethyl Alcohol Level LESS THAN 3 MG/DL MDM Medical Decision Making Medical Screen Exam Complete: Yes Emergency Medical Condition: Yes Differential Diagnosis Acute on chronic pancreatitis, epigastric pain, metabolic disorder, chronic pain , drug-seeking behavior, withdrawal Narrative Course Patient was seen and examined. Initial laboratory studies were ordered along with IV Zofran and IV fluids. Patient was signed out to Dr. Castro at the end of my shift. Please see her documentation, diagnosis and disposition. Scripts Ondansetron Odt (Zofran Odt) 4 Mg Tab 4 MG SL Q6HR Y for Nausea/Vomiting, #15 TAB 0 Refills Prov: Mala Castro MD 08/05/17 Dicyclomine (Bentyl) 10 Mg Cap 10 MG PO TID Y for Bowel Management, #15 CAP 0 Refills Prov: Mala Castro MD 08/05/17 John Rinaldi Aug 04, 2017 22:36
[2017-08-04 22:47] VITALS: O2SAT 98
[2017-08-04 22:53] LABS: AUTOMATED NEUTROPHIL # 7.3 TH/MM3 (1.8-7.7); BASOPHIL # 0.1 TH/MM3 (0-0.2); BASOPHIL % 0.5 % (0.0-2.0); EOSINOPHIL % 0.4 % (0.0-4.0); HEMATOCRIT 54.3 % (39.0-51.0); HEMOGLOBIN 18.3 GM/DL (13.0-17.0); LYMPHOCYTE # 1.3 TH/MM3 (1.0-4.8); MEAN CELL VOLUME 87.6 FL (80.0-100.0); MEAN CORPUSCULAR HEMOGLOBIN 29.5 PG (27.0-34.0); MEAN CORPUSCULAR HGB CONC 33.6 % (32.0-36.0); MEAN PLATELET VOLUME 8.1 FL (7.0-11.0); MONO % 6.1 % (0.0-8.0); MONOCYTE # 0.6 TH/MM3 (0-0.9); PLATELET COUNT 280 TH/MM3 (150-450); WHITE BLOOD COUNT 9.3 TH/MM3 (4.0-11.0)
[2017-08-04 23:00] LABS: PROTHROMBIN TIME - PATIENT 11.4 SEC (9.8-11.6)
[2017-08-05 00:30] LABS: ALBUMIN 3.7 GM/DL (3.4-5.0); ALT (GPT) 31 U/L (12-78); AST (GOT) 30 U/L (15-37); BICARBONATE 28.4 MEQ/L (21.0-32.0); BLOOD UREA NITROGEN 9 MG/DL (7-18); CALCIUM 7.9 MG/DL (8.5-10.1); CHLORIDE 105 MEQ/L (98-107); CREATININE 0.75 MG/DL (0.60-1.30); GLOMERULAR FILTRATION RATE 108 ML/MIN (>89); GLUCOSE,RANDOM 109 MG/DL (74-106); LIPASE 157 U/L (73-393); SODIUM (NA) 139 MEQ/L (136-145)
[2017-08-05 00:33] LABS: ALKALINE PHOSPHATASE 73 U/L (45-117); TOTAL BILIRUBIN ADULT 0.7 MG/DL (0.2-1.0); TOTAL PROTEIN 7.5 GM/DL (6.4-8.2)
[2017-08-05] MEDS ORDERED: DICY10 PO (00:53)
[2017-08-05] MEDS ORDERED: ZOFR4TAB3 SL (00:53)
--- NOTE | 2017-08-05 00:53 | PD ---
Data Data Last Documented VS Vital Signs Date Time Temp Pulse Resp B/P (MAP) Pulse Ox O2 Delivery O2 Flow Rate FiO2 08/04/17 22:47 98 Nasal Cannula 2.00 08/04/17 22:30 99.0 70 20 190/105 (133) Orders Orders Complete Blood Count With Diff (08/04/17 22:19) Comprehensive Metabolic Panel (08/04/17 22:19) Lipase (08/04/17 22:19) Prothrombin Time / Inr (Pt) (08/04/17 22:19) Act Partial Throm Time (Ptt) (08/04/17 22:19) Iv Access Insert/Monitor (08/04/17 22:19) Ecg Monitoring (08/04/17 22:19) Oximetry (08/04/17 22:19) Ondansetron Inj (Zofran Inj) (08/04/17 22:30) Sodium Chloride 0.9% Flush (Ns Flush) (08/04/17 22:30) Electrocardiogram (08/04/17 22:19) Sodium Chlor 0.9% 1000 Ml Inj (Ns 1000 M (08/04/17 22:30) Alcohol (Ethanol) (08/04/17 22:30) Labs Laboratory Tests Test 08/04/17 22:30 08/05/17 00:10 White Blood Count 9.3 TH/MM3 Red Blood Count 6.20 MIL/MM3 Hemoglobin 18.3 GM/DL Hematocrit 54.3 % Mean Corpuscular Volume 87.6 FL Mean Corpuscular Hemoglobin 29.5 PG Mean Corpuscular Hemoglobin Concent 33.6 % Red Cell Distribution Width 14.0 % Platelet Count 280 TH/MM3 Mean Platelet Volume 8.1 FL Neutrophils (%) (Auto) 79.0 % Lymphocytes (%) (Auto) 14.0 % Monocytes (%) (Auto) 6.1 % Eosinophils (%) (Auto) 0.4 % Basophils (%) (Auto) 0.5 % Neutrophils # (Auto) 7.3 TH/MM3 Lymphocytes # (Auto) 1.3 TH/MM3 Monocytes # (Auto) 0.6 TH/MM3 Eosinophils # (Auto) 0.0 TH/MM3 Basophils # (Auto) 0.1 TH/MM3 CBC Comment DIFF FINAL Differential Comment Prothrombin Time 11.4 SEC Prothromb Time International Ratio 1.0 RATIO Activated Partial Thromboplast Time 28.3 SEC Blood Urea Nitrogen 9 MG/DL Creatinine 0.75 MG/DL Random Glucose 109 MG/DL Total Protein 7.5 GM/DL Albumin 3.7 GM/DL Calcium Level 7.9 MG/DL Alkaline Phosphatase 73 U/L Aspartate Amino Transf (AST/SGOT) 30 U/L Alanine Aminotransferase (ALT/SGPT) 31 U/L Total Bilirubin 0.7 MG/DL Sodium Level 139 MEQ/L Potassium Level 3.6 MEQ/L Chloride Level 105 MEQ/L Carbon Dioxide Level 28.4 MEQ/L Anion Gap 6 MEQ/L Estimat Glomerular Filtration Rate 108 ML/MIN Lipase 157 U/L Ethyl Alcohol Level LESS THAN 3 MG/DL MDM Supervised Visit with ALYSSA: Yes Narrative Course The history, exam, and medical decision-making in the associated midlevel provider note were completed with my assistance. I reviewed and agree with the findings presented. I attest that I had a [id number] encounter with the patient on the same day, and personally performed and documented my assessment and findings in the medical record. *My assessment and Findings: This is a very polite 56-year-old gentleman who presents to the emergency department with vomiting and abdominal discomfort. He says he has a history chronic pancreatitis and he was being maintained on hospice care. His hospice was recently rescinded because he was found not to have a terminal illness. He had been on methadone, Dilaudid and Ativan. He's been out of these medications for several days. His labs are all reassuring. He doesn't appear to be in acute benzodiazepine withdrawal. I think the patient is appropriate for outpatient management. I think his symptoms are due to opiate withdrawal. I recommended that we place a clonidine patch here in the emergency department and he was discharged with Leila. I also recommended that he enroll in an opiate replacement program and I gave him information regarding [facility]. Diagnosis Primary Impression: Opiate withdrawal Patient Instructions: General Instructions Additional Instruction: If you develop severe or worsening abdominal pain, fever>100.4, persistent vomiting or inability to eat or drink return to the emergency department immediately. Follow up with [facility] in regards to psychiatric or substance related issues at: [address] [place] [id number] Med/Other Pt SpecificInfo: Prescription(s) given Scripts Ondansetron Odt (Zofran Odt) 4 Mg Tab 4 MG SL Q6HR Y for Nausea/Vomiting, #15 TAB 0 Refills Prov: Mala Castro MD 08/05/17 Dicyclomine (Bentyl) 10 Mg Cap 10 MG PO TID Y for Bowel Management, #15 CAP 0 Refills Prov: Mala Castro MD 08/05/17 Disposition: 01 DISCHARGE HOME Condition: Stable Mala Castro MD Aug 05, 2017 00:53
[2017-08-05] MEDS ORDERED: cloNIDine HCL 0.1 MG/24 HR PATCH T-DERMAL ONE (01:00)
--- NOTE | 2017-08-06 21:03 | EKG ---
Date Performed: 08/04/2017 Time Performed: 23:03:32 PTAGE: 56 years EKG: Sinus rhythm WITH OCCASIONAL SUPRAVENTRICULAR PREMATURE COMPLEXES BORDERLINE ECG PREVIOUS TRACING : 08/03/2017 01.16 DOCTOR: Fior Eli Interpretating Date/Time 08/06/2017 20:55:02
== END 2017-08-05 02:22 | disposition home or self-care (01) ==
LOC: NEPC 22:05
DX: K86.1 Other chronic pancreatitis (principal); F11.23 Opioid dependence with withdrawal; J44.9 Chronic obstructive pulmonary disease, unspecified; M06.9 Rheumatoid arthritis, unspecified; M19.90 Unspecified osteoarthritis, unspecified site; K21.9 Gastro-esophageal reflux disease without esophagitis
CPT/HCPCS: 80053; 80307; 83690; 85025; 85610; 85730; 93005; 96361; 96374; 99284; J2405; J7030

== ENCOUNTER 2017-11-01 14:31 | Inpatient (IN) | payer MEDICAID ==
[2017-11-01] MEDS: ONDANSETRON HCL 4 MG/2 ML VIAL IVP (16:01)
[2017-11-01] MEDS: SODIUM CHLOR 0.9% 1000 ML INJ 1,000 ML IV (16:01)
[2017-11-01] MEDS: FAMOTIDINE 20 MG/2 ML VIAL IV PUSH ×2 (16:02→17:30)
[2017-11-01] MEDS: SODIUM CHLORIDE 0.9% FLUSH 10 ML FLUSH IV FLUSH ×3 (16:02→19:09)
[2017-11-01] MEDS: KETOROLAC TROMETHAMINE 30 MG/ML (IVP) VIAL IVP (16:02)
[2017-11-01 16:14] LABS: CHLORIDE 102 MEQ/L (98-107); POTASSIUM 4.2 MEQ/L (3.5-5.1); SODIUM (NA) 134 MEQ/L (136-145)
[2017-11-01 16:17] LABS: APTT (PATIENT) 26.7 SEC (24.3-30.1); PROTHROMBIN TIME - PATIENT 10.1 SEC (9.8-11.6)
[2017-11-01 16:18] LABS: ALBUMIN 3.9 GM/DL (3.4-5.0); ANION GAP 8 MEQ/L (5-15); BICARBONATE 23.6 MEQ/L (21.0-32.0); BLOOD UREA NITROGEN 9 MG/DL (7-18); CALCIUM 8.4 MG/DL (8.5-10.1); GLUCOSE,RANDOM 121 MG/DL (74-106)
[2017-11-01 16:21] LABS: ALT (GPT) 74 U/L (12-78); AST (GOT) 70 U/L (15-37); CREATININE 0.95 MG/DL (0.60-1.30); GLOMERULAR FILTRATION RATE 82 ML/MIN (>89)
[2017-11-01 16:23] LABS: LIPASE 4103 U/L (73-393); TOTAL BILIRUBIN ADULT 0.7 MG/DL (0.2-1.0); TOTAL PROTEIN 8.2 GM/DL (6.4-8.2)
[2017-11-01 16:24] LABS: ALKALINE PHOSPHATASE 79 U/L (45-117)
[2017-11-01 16:28] LABS: AUTOMATED NEUTROPHIL # 7.7 TH/MM3 (1.8-7.7); BASOPHIL % 0.3 % (0.0-2.0); EOSINOPHIL # 0.1 TH/MM3 (0-0.4); EOSINOPHIL % 1.2 % (0.0-4.0); HEMATOCRIT 48.5 % (39.0-51.0); LYMPH % 9.4 % (9.0-44.0); LYMPHOCYTE # 0.9 TH/MM3 (1.0-4.8); MEAN CELL VOLUME 89.9 FL (80.0-100.0); MEAN CORPUSCULAR HEMOGLOBIN 29.7 PG (27.0-34.0); MEAN PLATELET VOLUME 8.6 FL (7.0-11.0); MONO % 5.5 % (0.0-8.0); MONOCYTE # 0.5 TH/MM3 (0-0.9); NEUT % 83.6 % (16.0-70.0); PLATELET COUNT 178 TH/MM3 (150-450); RED CELL DISTRIBUTION WIDTH 14.9 % (11.6-17.2); WHITE BLOOD COUNT 9.2 TH/MM3 (4.0-11.0)
[2017-11-01 16:35] LABS: HEMO FLAGS AUTO DIFF
[2017-11-01] MEDS: IOHEXOL 350 MG/ML 10 ML VIAL (for RAD DIAG) IVCONTRAST (16:40)
[2017-11-01] MEDS: MORPHINE SULFATE 2 MG/ML INJ IV PUSH (17:40)
[2017-11-01 17:42] LABS: BILIRUBIN, URINE NEG (NEG); BLOOD, URINE NEG (NEG); GLUCOSE,URINE NEG (NEG); KETONE, URINE TRACE mg/dL (NEG); NITRITE,URINE NEG (NEG); PH, URINE 5.5 (5.0-8.5); SCAN/DIFF AUTO DIFF CONFIRMED; URINE LEUKOCYTE ESTERASE NEG (NEG)
[2017-11-01 18:01] LABS: URINE COLOR YELLOW (YELLW/STRAW)
[2017-11-01 18:02] LABS: COMMENT (UR) CULT NOT INDICATED; CULTURE IF INDICATED CULT NOT INDICATED; RBC, URINE 0-3 /hpf (0-3); SQUAMOUS EPITHELIAL CELL URINE 0-5 /hpf (0-5)
[2017-11-01] MEDS ORDERED: SODIUM CHLOR 0.9% 1000 ML INJ 1,000 ML IV (18:35)
[2017-11-01] MEDS ORDERED: PROMETHAZINE INJ 25 MG/ML VIAL IM (18:45)
[2017-11-01] MEDS ORDERED: ACETAMINOPHEN/HYDROcodone 325 MG/7.5 MG TAB PO (18:45)
[2017-11-01] MEDS ORDERED: MORPHINE SULFATE 2 MG/ML INJ IV PUSH (18:45)
[2017-11-01] MEDS: HYDROmorphone HCL PF 2 MG/ML VIAL IV PUSH (19:09)
[2017-11-01] MEDS ORDERED: CIPROFLOXACIN 200 MG PREMIX 100 ML IV (20:00)
[2017-11-01] MEDS: OCTREOTIDE INJ 500 MCG in SODIUM CHLORID 0.9% 500 ML INJ 499.5 ML IV (20:28)
[2017-11-01] MEDS: OCTREOTIDE INJ 100 MCG/ML VIAL IV PUSH (20:28)
[2017-11-01] MEDS ORDERED: PANTOPRAZOLE INJ 80 MG in SODIUM CHLORIDE 0.9% INJ 35 ML IV (21:00)
[2017-11-01] MEDS ORDERED: PANTOPRAZOLE INJ 80 MG in SODIUM CHLORIDE 0.9% INJ 100 ML IV (21:00)
[2017-11-01] MEDS ORDERED: METHYLNALTREXONE BROMIDE 12 MG/0.6 ML VIAL SQ (21:00)
[2017-11-01 21:11] LABS: CHOLESTEROL 135 MG/DL (120-200)
[2017-11-01 21:12] LABS: CHOLESTEROL/ HDL RATIO 3.37 RATIO; LDL CHOLESTEROL 77 MG/DL (0-99); TRIGLYCERIDES 91 MG/DL (42-150)
== END 2017-11-01 21:24 | disposition left against medical advice (07) | DRG 377 ==
LOC: PHED 14:31 → PHEDA 17:51 → PH3B 20:46
DX: K92.0 Hematemesis (principal); K85.90 Acute pancreatitis without necrosis or infection, unspecified; K50.90 Crohn's disease, unspecified, without complications; F17.210 Nicotine dependence, cigarettes, uncomplicated; D49.0 Neoplasm of unspecified behavior of digestive system; K59.00 Constipation, unspecified; K86.1 Other chronic pancreatitis; M19.90 Unspecified osteoarthritis, unspecified site; Z86.14 Personal history of Methicillin resistant Staphylococcus aureus infection; I25.2 Old myocardial infarction
CPT/HCPCS: 74177; 80053; 80061; 81001; 83690; 85025; 85610; 85730; 96361; 96374; 96375; 99285-25

== ENCOUNTER 2018-01-21 21:57 | Emergency (ER) | payer MEDICAID ==
[~2018-01-21] VITALS: Ht 172.7 cm; Wt 71.3 kg
[2018-01-21 22:05] VITALS: BP 138/70; PULSE 112; RESP 18; TEMP 98.7; O2SAT 94
[2018-01-21 23:33] VITALS: BP 138/95; PULSE 115; RESP 18; O2SAT 96
[2018-01-21] MEDS ORDERED: SODIUM CHLOR 0.9% 1000 ML INJ 1,000 ML IV ONE (23:45)
[2018-01-21] MEDS ORDERED: KETOROLAC TROMETHAMINE 30 MG/ML (IVP) VIAL IV PUSH ONE (23:45)
[2018-01-21] MEDS ORDERED: ACETAMINOPHEN/HYDROcodone 325 MG/5 MG TAB PO ONE (23:45)
[2018-01-21] MEDS ORDERED: SODIUM CHLORIDE 0.9% FLUSH 10 ML FLUSH IVF PRN (23:45)
[2018-01-22 00:17] LABS: AUTOMATED NEUTROPHIL # 9.8 TH/MM3 (1.8-7.7); BASOPHIL # 0.3 TH/MM3 (0-0.2); BASOPHIL % 2.3 % (0.0-2.0); EOSINOPHIL # 0.1 TH/MM3 (0-0.4); EOSINOPHIL % 0.7 % (0.0-4.0); HEMATOCRIT 49.5 % (39.0-51.0); HEMOGLOBIN 16.5 GM/DL (13.0-17.0); LYMPH % 12.6 % (9.0-44.0); LYMPHOCYTE # 1.6 TH/MM3 (1.0-4.8); MEAN CELL VOLUME 87.6 FL (80.0-100.0); MEAN CORPUSCULAR HEMOGLOBIN 29.3 PG (27.0-34.0); MEAN CORPUSCULAR HGB CONC 33.5 % (32.0-36.0); MEAN PLATELET VOLUME 8.7 FL (7.0-11.0); MONO % 5.1 % (0.0-8.0); MONOCYTE # 0.6 TH/MM3 (0-0.9); NEUT % 79.3 % (16.0-70.0); PLATELET COUNT 257 TH/MM3 (150-450); RED BLOOD COUNT 5.64 MIL/MM3 (4.50-5.90); RED CELL DISTRIBUTION WIDTH 12.4 % (11.6-17.2); WHITE BLOOD COUNT 12.4 TH/MM3 (4.0-11.0)
--- NOTE | 2018-01-22 00:33 | PD ---
HPI Chief Complaint: Pain: Acute or Chronic Time Seen by Provider: 23:15 Travel History International Travel<30 days: No Contact w/Intl Traveler<30days: No Traveled to known affect area: No History of Present Illness HPI 57-year-old male complains of neck pain. He states it's constant. It has been present for 10 days. He believes there is a lump on the neck. He reports the pain radiates down the arms. He states the pain is severe. No fever or chills. No shortness of breath. No injury. PFSH Past Medical History Hx Anticoagulant Therapy: No Arthritis: Yes (RHEUMATOID AND OSTEO) Asthma: Yes Autoimmune Disease: No Anxiety: No Depression: No Heart Rhythm Problems: No Cancer: No Cardiac Catheterization: Yes Cardiovascular Problems: Yes (2 NY'S AND ABLATION, HTN) High Cholesterol: No Chemotherapy: No Chest Pain: Yes Congestive Heart Failure: No COPD: Yes Cerebrovascular Accident: No Diabetes: No Diminished Hearing: No Diverticulitis: Yes (crohn's) Endocrine: No Gastrointestinal Disorders: Yes (CROHNS DISEASE) GERD: Yes Genitourinary: No Headaches: No Hiatal Hernia: Yes Hypertension: Yes (states only when in pain) Immune Disorder: No Implanted Vascular Access Dvce: No Kidney Stones: No Musculoskeletal: Yes Neurologic: No Psychiatric: No Reproductive: No Respiratory: No Immunizations Current: Yes Migraines: No Myocardial Infarction: Yes (2009) Pancreatitis: Yes (chronic.) Radiation Therapy: No Renal Failure: No Seizures: No Sleep Apnea: No Thyroid Disease: No Ulcer: No Tetanus Vaccination: < 5 Years Influenza Vaccination: Yes Past Surgical History Abdominal Surgery: No Body Medical Devices: BULLETS L KNEE, R SHOULDER, L ARM PIT, L THIGH Cardiac Surgery: Yes (ABLATION) Ear Surgery: No Endocrine Surgery: No Eye Surgery: No Genitourinary Surgery: No Gynecologic Surgery: No Hysterectomy: No Neurologic Surgery: No Oral Surgery: No Thoracic Surgery: No Other Surgery: Yes (ESOPHAGEAL VARICIES, BLOOD CLOT BETWEEN PANCREAS AND SPLEEN ) Social History Alcohol Use: No (quit hx of alochol abuse, states drank 4 pints a day) Tobacco Use: Yes (3-4 cigs a day) Substance Use: No Allergies-Medications (Allergen,Severity, Reaction): Coded Allergies: *MDRO Multi-Drug Resistant Organism (Verified Adverse Reaction, Unknown, ) MRSA 08/2013 Abscess - thigh. MRSA PCR Screen negative 04/29/15 and 07/20/15. Cleared per Infection Control. Reported Meds & Prescriptions Reported Meds & Active Scripts Active Robaxin (Methocarbamol) 750 Mg Tab 1,500 Mg PO TID Review of Systems Except as stated in HPI: all other systems reviewed are Neg General / Constitutional: No: Fever Physical Exam Narrative GENERAL: 57-year-old male well-nourished well-developed Vital Signs Date Time Temp Pulse Resp B/P (MAP) Pulse Ox O2 Delivery O2 Flow Rate FiO2 01/21/18 23:33 115 18 138/95 (109) 96 Room Air 01/21/18 22:05 98.7 112 18 138/70 (92) 94 SKIN: Warm and dry. HEAD: Atraumatic. Normocephalic. EYES: Pupils equal and round. No scleral icterus. No injection or drainage. ENT: No nasal bleeding or discharge. Mucous membranes pink and moist. NECK: Trachea midline. No JVD. Spasms are present about the paracervical musculature. CARDIOVASCULAR: Tachycardia. Regular rhythm. RESPIRATORY: No accessory muscle use. Clear to auscultation. Breath sounds equal bilaterally. GASTROINTESTINAL: Abdomen soft, non-tender, nondistended. Hepatic and splenic margins not palpable. MUSCULOSKELETAL: Extremities without clubbing, cyanosis, or edema. No obvious deformities. NEUROLOGICAL: Hand guide cruise is equal bilaterally. Patient is ambulatory. Speech memory mentation normal. Cranial nerves are normal. PSYCHIATRIC: Appropriate mood and affect; insight and judgment normal. Data Data Last Documented VS Vital Signs Date Time Temp Pulse Resp B/P (MAP) Pulse Ox O2 Delivery O2 Flow Rate FiO2 01/22/18 01:22 100 18 147/75 (99) 97 01/22/18 00:40 Room Air 01/21/18 22:05 98.7 Orders Orders Electrocardiogram (01/21/18 23:38) Basic Metabolic Panel (Bmp) (01/21/18 23:38) Complete Blood Count With Diff (01/21/18 23:38) Magnesium (Mg) (01/21/18 23:38) Ecg Monitoring (01/21/18 23:38) Iv Access Insert/Monitor (01/21/18 23:38) Oximetry (01/21/18 23:38) Oxygen Administration (01/21/18 23:38) Sodium Chloride 0.9% Flush (Ns Flush) (01/21/18 23:45) Acetamin-Hydrocod 325-5 Mg (Garwood 5-325 (01/21/18 23:45) Ketorolac Inj (Toradol Inj) (01/21/18 23:45) Sodium Chlor 0.9% 1000 Ml Inj (Ns 1000 M (01/21/18 23:45) Ed Discharge Order (01/22/18 01:07) Labs Laboratory Tests Test 01/21/18 23:54 White Blood Count 12.4 TH/MM3 Red Blood Count 5.64 MIL/MM3 Hemoglobin 16.5 GM/DL Hematocrit 49.5 % Mean Corpuscular Volume 87.6 FL Mean Corpuscular Hemoglobin 29.3 PG Mean Corpuscular Hemoglobin Concent 33.5 % Red Cell Distribution Width 12.4 % Platelet Count 257 TH/MM3 Mean Platelet Volume 8.7 FL Neutrophils (%) (Auto) 79.3 % Lymphocytes (%) (Auto) 12.6 % Monocytes (%) (Auto) 5.1 % Eosinophils (%) (Auto) 0.7 % Basophils (%) (Auto) 2.3 % Neutrophils # (Auto) 9.8 TH/MM3 Lymphocytes # (Auto) 1.6 TH/MM3 Monocytes # (Auto) 0.6 TH/MM3 Eosinophils # (Auto) 0.1 TH/MM3 Basophils # (Auto) 0.3 TH/MM3 CBC Comment DIFF FINAL Differential Comment Blood Urea Nitrogen 5 MG/DL Creatinine 0.74 MG/DL Random Glucose 113 MG/DL Calcium Level 8.2 MG/DL Magnesium Level 2.1 MG/DL Sodium Level 134 MEQ/L Potassium Level 3.9 MEQ/L Chloride Level 102 MEQ/L Carbon Dioxide Level 22.3 MEQ/L Anion Gap 10 MEQ/L Estimat Glomerular Filtration Rate 109 ML/MIN [facility] Medical Decision Making Medical Screen Exam Complete: Yes Emergency Medical Condition: Yes Medical Record Reviewed: Yes Differential Diagnosis Torticollis, cervicalgia, myofascial strain Narrative Course CBC & BMP Diagram 01/21/18 23:54 Calcium Level 8.2 L, Magnesium Level 2.1 Pain resolved with two 5 mg Lortabs Presentation is considered most with myofascial strain or potentially torticollis. Patient ready for discharge. Diagnosis Primary Impression: Cervical myofascial strain Qualified Codes: S16.1XXA - Strain of muscle, fascia and tendon at neck level , initial encounter Referrals: Primary Care Physician call for appointment Med/Other Pt SpecificInfo: No Change to Meds Scripts Methocarbamol (Robaxin) 750 Mg Tab 1500 MG PO TID for Muscle Spasm, #30 TAB 0 Refills Prov: Jagdish Hayes MD 01/22/18 Disposition: DISCHARGE HOME Condition: Stable Jagdish Hayes MD Jan 22, 2018 00:33
[2018-01-22 00:51] LABS: CALCIUM 8.2 MG/DL (8.5-10.1)
[2018-01-22 00:52] LABS: BICARBONATE 22.3 MEQ/L (21.0-32.0); MAGNESIUM 2.1 MG/DL (1.5-2.5)
[2018-01-22 00:55] LABS: CREATININE 0.74 MG/DL (0.60-1.30)
[2018-01-22] MEDS ORDERED: ROBA750T PO (01:13)
[2018-01-22 01:22] VITALS: BP 147/75
[2018-01-22] MEDS ORDERED: HYDR-3288 PO (11:28)
== END 2018-01-22 01:40 | disposition home or self-care (01) ==
LOC: PHED 21:57
DX: S16.1XXA Strain of muscle, fascia and tendon at neck level, initial encounter (principal); F17.210 Nicotine dependence, cigarettes, uncomplicated; M06.9 Rheumatoid arthritis, unspecified; I10 Essential (primary) hypertension; J44.9 Chronic obstructive pulmonary disease, unspecified; K21.9 Gastro-esophageal reflux disease without esophagitis; I25.2 Old myocardial infarction; Z87.19 Personal history of other diseases of the digestive system; X58.XXXA Exposure to other specified factors, initial encounter
CPT/HCPCS: 80048; 83735; 85025; 96361; 96374; 99284; J1885; J7030

== ENCOUNTER 2018-01-22 07:02 | Emergency (ER) | payer MEDICAID ==
[~2018-01-22] VITALS: Ht 172.7 cm; Wt 71.3 kg
[~2018-01-22 07:02] MED LIST changes: -ALBU.5I NEB; -DILA8TAB4 PO; -METH10TA PO; -PERC10TA27 PO; -PRED50 PO; -PROM25TA5 PO; +ROBA750T PO; -b/p med
[2018-01-22 07:06] VITALS: BP 123/85; PULSE 119; RESP 18; TEMP 98.2; O2SAT 98
[2018-01-22] MEDS ORDERED: HYDROmorphone HCL PF 2 MG/ML VIAL IV PUSH ONE ×2 (07:30→10:00)
[2018-01-22] MEDS ORDERED: ONDANSETRON HCL 4 MG/2 ML VIAL IV PUSH ONE (07:30)
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
[2018-01-22 07:56] LABS: AUTOMATED NEUTROPHIL # 10.6 TH/MM3 (1.8-7.7); BASOPHIL # 0.1 TH/MM3 (0-0.2); BASOPHIL % 0.5 % (0.0-2.0); EOSINOPHIL # 0.1 TH/MM3 (0-0.4); EOSINOPHIL % 1.1 % (0.0-4.0); HEMATOCRIT 46.8 % (39.0-51.0); HEMOGLOBIN 16.3 GM/DL (13.0-17.0); LYMPH % 10.2 % (9.0-44.0); LYMPHOCYTE # 1.4 TH/MM3 (1.0-4.8); MEAN CELL VOLUME 87.8 FL (80.0-100.0); MEAN CORPUSCULAR HEMOGLOBIN 30.6 PG (27.0-34.0); MEAN CORPUSCULAR HGB CONC 34.8 % (32.0-36.0); MEAN PLATELET VOLUME 7.8 FL (7.0-11.0); MONO % 8.2 % (0.0-8.0); MONOCYTE # 1.1 TH/MM3 (0-0.9); PLATELET COUNT 250 TH/MM3 (150-450); RED BLOOD COUNT 5.32 MIL/MM3 (4.50-5.90); RED CELL DISTRIBUTION WIDTH 13.2 % (11.6-17.2); WHITE BLOOD COUNT 13.3 TH/MM3 (4.0-11.0)
[2018-01-22 08:06] LABS: BICARBONATE 25.8 MEQ/L (21.0-32.0); CREATININE 0.89 MG/DL (0.60-1.30)
[2018-01-22 08:39] VITALS: BP 160/95; PULSE 101; RESP 18; O2SAT 99
[2018-01-22] MEDS ORDERED: LORazepam 2 MG/ML VIAL IV PUSH ONE (08:45)
--- NOTE | 2018-01-22 09:50 | EKG ---
Date Performed: 01/22/2018 Time Performed: 07:33:43 PTAGE: 57 years EKG: Sinus tachycardia ABNORMAL RHYTHM ECG PREVIOUS TRACING : 08/04/2017 23.03 Compared to the prior study, the rate is faster, otherwise no change. DOCTOR: Flavio Baca Interpretating Date/Time 01/22/2018 09:50:29
[2018-01-22] MEDS ORDERED: KETOROLAC TROMETHAMINE 30 MG/ML (IVP) VIAL IV PUSH ONE (10:00)
--- NOTE | 2018-01-22 11:02 | RADRPT ---
EXAM DATE/TIME: 01/22/2018 10:24 [facility] COMPARISON: No previous studies available for comparison. INDICATIONS : Pain. NKI. MEDICAL HISTORY : Pancreatitis. SURGICAL HISTORY : Cardiac ablation. ENCOUNTER: Initial ACUITY: 2 day PAIN SCORE: 8/10 LOCATION: neck TECHNIQUE: Multiplanar, multisequence MRI examination of the cervical spine was performed. FINDINGS: Cerebellar tonsils are in normal anatomic position. Given that the cord is grossly normal. C2-C3: No significant findings. Limited by motion C3-C4: Moderate spinal stenosis. Limited by motion C4-C5: Moderate spinal stenosis. Limited by motion C5-C6: Mild spinal stenosis without significant cord compression, limited by motion C6-C7: No significant cord compression, limited by motion C7-T1: No significant cord compression, limited by motion CONCLUSION: Severely limited exam because of motion. There is radiographic significant spinal stenosis from C3-C 4 to C5-C6. I don't see obvious cord edema however this would be difficult to exclude given the deena on. Basil Alexis MD FACR on January 22, 2018 at 10:56 Board Certified Radiologist. This report was verified electronically.
[2018-01-22] MEDS ORDERED: HYDR-3288 PO (11:28)
== END 2018-01-22 11:42 | disposition home or self-care (01) ==
LOC: PHED 07:02
DX: M54.2 Cervicalgia (principal); M48.02 Spinal stenosis, cervical region; I25.10 Atherosclerotic heart disease of native coronary artery without angina pectoris; I10 Essential (primary) hypertension; I25.2 Old myocardial infarction; J44.9 Chronic obstructive pulmonary disease, unspecified; K21.9 Gastro-esophageal reflux disease without esophagitis; K50.90 Crohn's disease, unspecified, without complications; F17.210 Nicotine dependence, cigarettes, uncomplicated
CPT/HCPCS: 72141; 80048; 85025; 85652; 93005; 96374; 96375; 96376; 99285; J1170; J1885; J2060; J2405